=== PATIENT | female | born 1990 | race Caucasian/White ===

== ENCOUNTER 2019-03-03 14:50 | Emergency (ER) | payer BC ==
[~2019-03-03] VITALS: Ht 157.5 cm; Wt 97.8 kg
--- NOTE | 2019-03-03 14:53 | NUR ---
CALLED PT NO ANSWER
[2019-03-03] MEDS ORDERED: ONDANSETRON ODT 8 MG PO ONE (15:00)
[2019-03-03] MEDS ORDERED: ONDANSETRON ODT 8 MG ONE (15:02)
--- NOTE | 2019-03-03 15:04 | NUR ---
LEIGH NURSE: MEDICATED WITH ZOFRAN PER TIARA
--- NOTE | 2019-03-03 16:31 | NUR ---
LINOLEUM LAYER:PT AMBULATORY TO ROOM FROM LOBBY
[2019-03-03] MEDS ORDERED: FAMOTIDINE 20 MG/2 ML ONE (16:47)
--- NOTE | 2019-03-03 16:57 | NUR ---
THIS IS A 29 YO F WITH C/O N/V/D SINCE THIS MORNING. SHE STATES THAT SHE HAS CRAMPING. DENIES BLOOD IN EMESIS. REPORTS MULTIPLE EPISODES OF VOMITING FREQUENT EVERY 15-30 MINUTES. RESPIRATIONS EVEN AND UNLABORED. PATIENT IN NO ACUTE DISTRESS. PIV AND 1L NS STARTED. CALL LIGHT IS IN REACH. DENIES FURTHER NEEDS AT THIS TIME.
[2019-03-03] MEDS ORDERED: FAMOTIDINE 20 MG/2 ML IV ONE (17:00)
[2019-03-03] MEDS ORDERED: SODIUM CHLORIDE FLUSH 10ML SYR IVF ONE (17:00)
[2019-03-03] MEDS ORDERED: SODIUM CHLORIDE 0.9% 1,000ML IVBOLUS ONE ×2 (17:00→19:30)
[2019-03-03 17:06] LABS: MEAN CORPUSCULAR HEMOGLOBIN 28.4 pg (27.0-34.8); MEAN CORPUSCULAR HGB CONC 33.7 g/dL (32.4-35.8); MEAN CORPUSCULAR VOLUME 84.4 fL (80-100); MEAN PLATELET VOLUME 7.6 fL (7.4-10.4); PLATELET COUNT 348 x10^3/uL (130-400); RED BLOOD COUNT 5.19 x10^6/uL (3.82-5.3); RED CELL DISTRIBUTION WIDTH 13.5 % (9.6-15.2)
[2019-03-03 17:09] LABS: ALANINE AMINOTRANSFERASE 39 U/L (12-78); ALBUMIN 4.6 g/dL (3.4-5.0); ANION GAP 8 mmol/L (5-15); CALCIUM 9.2 mg/dL (8.5-10.1); CHLORIDE 110 mmol/L (98-107); CREATININE 0.95 mg/dL (0.55-1.02)
[2019-03-03 17:12] LABS: ALKALINE PHOSPHATASE 58 U/L (45-117); BILIRUBIN,TOTAL 0.6 mg/dL (0.2-1.0); TOTAL PROTEIN 8.5 g/dL (6.4-8.2)
[2019-03-03 17:36] LABS: BASOPHILS % (AUTO) 0 % (0-1); EOSINOPHILS # (AUTO) 0.02 x10^3/uL (0-0.4); EOSINOPHILS % (AUTO) 0 % (1-7); LYMPHOCYTES # (AUTO) 0.45 x10^3/uL (1-3.4); LYMPHOCYTES % (AUTO) 3 % (22-44); MD SCAN; MONOCYTES # (AUTO) 0.23 x10^3/uL (0.2-0.8); MONOCYTES % (AUTO) 2 % (2-9); NEUTROPHILS % (AUTO) 95 % (42-75)
[2019-03-03] MEDS ORDERED: PROMETHAZINE 25 MG/ML, 1ML ONE (17:43)
--- NOTE | 2019-03-03 17:54 | NUR ---
PATIENT COMPLAINED OF PERSISTANT NAUSEA. NOTIFIED DR. WOODARD. PHENERGAN ORDERED AND GIVEN.
[2019-03-03] MEDS ORDERED: PROMETHAZINE 25 MG/ML, 1ML IM ONE (18:00)
[2019-03-03] MEDS ORDERED: TOPI100T24 PO (18:27)
[2019-03-03] MEDS ORDERED: SERT100T PO (18:27)
--- NOTE | 2019-03-03 18:28 | NUR ---
PT REPORTS SOME RELIEF OF NAUSEA. VS UPDATED AND WNL.
[2019-03-03 18:49] LABS: HCG UR SG 1.022 (1.003-1.030); MICROSCOPIC NOT IND
[2019-03-03 19:02] LABS: CULTURE INDICATED? NO
[2019-03-03] MEDS ORDERED: OMNIPAQUE 350 MG/ML, 100ML BOTTLE ONE (20:20)
[2019-03-03 21:49] VITALS: BP 118/74
== END 2019-03-03 21:52 | disposition home or self-care (01) ==
LOC: ED 17:23
DX: R11.2 Nausea with vomiting, unspecified (principal); R19.7 Diarrhea, unspecified; Z72.89 Other problems related to lifestyle
CPT/HCPCS: 36415; 74177; 80053; 81003; 81025; 83690; 84702; 85025; 86901; 96361; 96372; 96374; 99284; J2550; J3490; J7030; Q0162; Q9967